=== PATIENT | male | born 1985 | race African-American/Black ===

== ENCOUNTER 2017-12-22 07:26 | Emergency (ER) | payer MEDICAID, OTHER ==
[~2017-12-22] VITALS: Ht 182.9 cm; Wt 83.9 kg
[2017-12-22] MEDS ORDERED: ONDANSETRON HCL 4 MG/2 ML VIAL IV ONE (08:00)
[2017-12-22] MEDS ORDERED: DONNATAL 5ml ORAL Elix (BELLADONNA ALK-PHENOBARB) PO ONE (08:00)
[2017-12-22] MEDS ORDERED: SODIUM CHLORIDE 0.9% 1,000 ML IV ONE (08:00)
[2017-12-22] MEDS ORDERED: ALUM & MAG HYDROX-SIMETH LIQ(MAALOX) 30 ML PO ONE (08:00)
[2017-12-22] MEDS ORDERED: FAMOTIDINE 20 MG TAB PO ONE (08:00)
[2017-12-22] MEDS ORDERED: SODIUM CHLORIDE 0.9% 1,000 ML IVB ONE (08:00)
[2017-12-22 08:58] LABS: Basophils # (auto) 0 uL; Basophils % (auto) 0.4 % (0.0-2.0); Eosinophils # (auto) 0 uL; Eosinophils % (auto) 0.5 % (0.0-7.0); Monocytes # (auto) 1.2 uL
[2017-12-22 09:00] LABS: Hematocrit 47.4 % (41.0-53.0); Hemoglobin 16.3 g/dL (13.5-17.5); Lymphocytes # (auto) 1.4 uL; Lymphocytes % (auto) 13.9 % (10.0-50.0); Mean Corpuscular Hemoglobin 35.1 pg (28.0-32.0); Mean Corpuscular Hgb Conc. 34.4 g/dL (32.0-36.0); Mean Corpuscular Volume 101.7 fL (80.0-100.0); Monocytes % (auto) 12.1 % (0.0-12.0); Neutrophils # (auto) 7.3 uL; Neutrophils % (auto) 73.1 % (37.0-80.0); Platelet Count (auto) 190 10^3/uL (140-450); Red Blood Cells 4.65 10^6/uL (4.5-5.90); Red Cell Distribution Width 13.3 % (11.8-14.3)
[2017-12-22 09:07] LABS: Albumin 4.4 g/dL (3.4-5.0); BUN/Creatinine Ratio 12.2; Bilirubin, Total 1.4 mg/dL (0.2-1.0); Calcium 9.3 mg/dL (8.5-10.1); Magnesium 2.8 mg/dL (1.6-2.6); Potassium 3.8 mmol/L (3.5-5.1); Total Protein 8.7 g/dL (6.4-8.2)
[2017-12-22 09:11] LABS: Partial Thromboplastin Time 24.7 sec (23.78-33.04); Prothrombin Time 10.7 sec (9.27-12.13)
[2017-12-22 11:50] VITALS: BP 142/78
== END 2017-12-22 12:00 | disposition home or self-care (01) ==
LOC: ER 07:26
DX: K29.21 Alcoholic gastritis with bleeding (principal); F12.10 Cannabis abuse, uncomplicated; R11.10 Vomiting, unspecified
CPT/HCPCS: 36415; 80053; 83690; 83735; 85025; 85610; 85730; 96361; 96374; 99285; J2405; J7030